=== PATIENT | female | born 1975 | race Caucasian/White ===

== ENCOUNTER 2022-07-02 23:50 | Emergency (ER) | payer OTHER ==
--- NOTE | 2022-07-03 00:44 | NUR ---
PATIENT LEFT BEFORE TRIAGE ASSESSMENT
== END 2022-07-03 00:45 | disposition left against medical advice (07) ==
LOC: ER 07-03 00:01
DX: Z53.21 Procedure and treatment not carried out due to patient leaving prior to being seen by health care provider (principal)